=== PATIENT | male | born 1980 | race Two or more races ===

== ENCOUNTER 2021-06-13 01:51 | Emergency (ER) | payer SELFPAY ==
[~2021-06-13] VITALS: Ht 180.3 cm; Wt 99.8 kg
[2021-06-13] MEDS ORDERED: EPINEPHrine HCL 1 MG/10 ML SYRG IV ONE (01:52)
[2021-06-13 02:00] VITALS: BP 0/0
== END 2021-06-13 01:57 ==
LOC: ER 01:51
DX: I46.9 Cardiac arrest, cause unspecified (principal); R07.9 Chest pain, unspecified
CPT/HCPCS: 99291; J0171